=== PATIENT | male | born 1955 | race Caucasian/White ===

== ENCOUNTER 2024-06-11 10:23 | Emergency (ER) | payer MEDICARE, SELFPAY ==
--- NOTE | 2024-06-11 10:26 | ED.MALEGU ---
HPI - Male Genitourinary General Chief complaint: Urogenital-Male Stated complaint: UTI Time Seen by Provider: 06/11/24 10:24 Source: patient Mode of arrival: ambulatory Limitations: no limitations History of Present Illness HPI Narrative: Patient is a 60-year-old male who presents with burning with urination, urgency, frequency for 3 days. Patient was sent to [facility] on Friday but did give large enough sample. Denies any fever, chills, nausea, vomiting, diarrhea, low back pain. Patient states he has not had a UTI in 2 years due to taking daily cranberry pill. Related Data Home Medications ?Medication ?Instructions ?Recorded ?Confirmed ?Last Taken ?Type amlodipine 5 mg tablet mg 06/11/24 Unknown History levothyroxine 75 mcg tablet mcg 06/11/24 Unknown History lisinopril 20 mg tablet mg 06/11/24 Unknown History rosuvastatin 10 mg tablet mg 06/11/24 Unknown History Allergies Allergy/AdvReac Type Severity Reaction Status Date / Time iodine Allergy Mild Other Verified 06/11/24 10:27 SHELLFISH Allergy Mild Other Uncoded 06/11/24 10:27 ANCHOVIES Allergy Other Uncoded 06/11/24 10:27 EGG YOLKS Allergy Other Uncoded 06/11/24 10:27 Review of Systems Review of Systems: All systems reviewed & are unremarkable except as noted in HPI and below Constitutional: Constitutional: Denies chills, Denies fever(s), Denies headache(s), Denies malaise and Denies weakness Eyes: Eyes: Denies change in vision, Denies eye discharge and Denies irritation ENT: Denies otalgia, Denies headache(s), Denies nasal congestion, Denies nasal discharge, Denies sinus pain and Denies sore throat Cardiovascular: Cardiovascular: Denies chest pain, Denies edema, Denies palpitations and Denies dyspnea Respiratory: Respiratory: Denies cough and Denies dyspnea Gastrointestinal: Gastrointestinal: Denies abdominal pain, Denies diarrhea, Denies nausea and Denies vomiting Genitourinary: Genitourinary: Denies hematuria, Reports dysuria, Denies flank pain, Reports urinary frequency and Reports urinary urgency Musculoskeletal: Musculoskeletal: Denies back pain and Denies numbness Integumentary/Breasts: Skin/Breast: Denies pruritus and Denies rash Neurologic: Denies headache(s), Denies numbness and Denies weakness Psychiatric: Psychiatric: Reports no additional psychiatric complaints Endocrine: Endocrine: Denies palpitations PMFSH Comments At time of signature, agree with nursing past medical, surgical, social and family history. There is no relevant family history pertinent to the presenting complaint. Exam Const: General: cooperative, healthy appearing, comfortable, no acute distress and well nourished Nutritional Appearance: well nourished Orientation/consciousness: patient oriented x3 HENMT: Head: normocephalic and atraumatic Ears: external ears normal Face/Nose/Sinus: Normal external nose present, Normal nares present and normal facial exam Face and sinus: normal facial exam Eyes: General: appearance normal, both eyes and all related structures Pupils: Equal, round and reactive pupils present EOM: EOMs intact bilaterally Neck: Neck: normal visual inspection, full ROM and supple Chest: Chest palpation & inspection: normal inspection of the chest Resp: Effort & Inspection: normal respiratory effort and able to speak in complete sentences Cardio: Rate: regular rate Rhythm: regular rhythm GI: Inspection: normal to inspection GI Palp: No abdominal tenderness and Yes Soft to palpation : General: Yes no CVA tenderness Back/Spine/Pelvis: Back: no CVA tenderness Skin: General skin exam: normal color and no rashes or lesions noted Neuro: General: patient oriented x3 and moves all extremities Cranial nerves: Yes Equal, round and reactive pupils present Extrem: General: normal to inspection and full ROM Psych: Appearance: grossly normal and well kempt Course Course Emergency Course: Patient is aware of diagnosis, understands and agrees to treatment plan. Anticipatory guidance given. Patient agrees to follow-up as directed and is aware of reasons to seek care at the emergency department. Portions of this record may have been created with voice recognition software Level of Care: Express Care Visit Vital Signs Vital signs: Vital Signs Temperature 36.9 C 06/11/24 10:41 Pulse Rate 109 H 06/11/24 10:41 Respiratory Rate 18 06/11/24 10:41 Blood Pressure 112/47 L 06/11/24 10:41 Pulse Oximetry 98 06/11/24 10:41 Oxygen Delivery Room Air 06/11/24 10:41 Temperature 36.9 C 06/11/24 10:41 Pulse Rate 109 H 06/11/24 10:41 Respiratory Rate 18 06/11/24 10:41 Blood Pressure 112/47 L 02/14/25 10:41 Pulse Oximetry 98 06/11/24 10:41 Oxygen Delivery Room Air 06/11/24 10:41 Reviewed MDM - Male Genitourinary MDM Narrative Medical decision making narrative: Pt well hydrated appearing, in no respiratory distress, hemodynamically stable. Recommend supportive care. The patient is stable at time of discharge the clinical impression was discussed and the patient was given the opportunity to ask questions, which were addressed as completely as possible given the information available at present. Anticipatory guidance and return to care precautions were discussed and the importance of primary care follow-up was stressed and encouraged. The patient voiced understanding of the plan, indications to return, and the need for follow-up. Exam findings show no acute concerns or changes Patient is appropriate for outpatient treatment and follow-up. Differential Diagnosis Differential diagnosis: Likely urinary tract infection, urethritis, epididymitis and prostatitis Medical Records Attestation: I reviewed the patient's medical records. Lab Data Attestation: I reviewed the patient's lab results. Labs: Lab Results 06/11/24 Range/Units 10:57 POC Urine Color [place] POC Urine Clarity Cloudy POC Urine pH 5.5 POC Ur Specif [place] 1.030 POC Urine Protein 2+ (Negative) POC Ur Glucose (UA) Negative (Negative) POC Urine Ketones Trace (Negative) POC Urine Blood 1+ (Negative) POC Urine Nitrite Positive (Negative) POC Urine Bilirubin 2+ (Negative) POC Urine Urobilinogen 0.2 POC U Leukocyte Esteras Trace (Negative) Discharge Plan Discharge Clinical Impression: Acute UTI Patient Disposition: Home, Self-Care Condition: Stable Instructions: Urinary Tract Infection in Men (ED) Additional Instructions: We will send a urine culture to the lab, based on your symptoms and urine dip we will start treatment today. If culture comes back and bacteria is not susceptible to antibiotic, your prescription may change. Your symptoms should improve within a day of starting antibiotics, but you should finish all the antibiotic pills you get. Otherwise your infection might come back Continue with increased water intake. Take Tylenol or ibuprofen as needed for pain or fever. Follow-up with primary care provider for urine recheck or see ER visit if condition worsens with high fever, nausea, vomiting, severe back pain Patient Language: Romanian Prescriptions: New cephalexin 500 mg capsule 500 mg PO QID 7 Days Qty: 28 0RF No Action lisinopril 20 mg tablet amlodipine 5 mg tablet levothyroxine 75 mcg tablet rosuvastatin 10 mg tablet Follow-up/Referrals: Troy Dempsey [Other] - 3 Days UNKNOWN,DOCTOR [Non-Staff] - Time of Disposition: 10:49
[2024-06-11 10:41] VITALS: BP 112/47; PULSE 109; RESP 18; TEMP 36.9; O2SAT 98
[2024-06-11 11:00] LABS: EDUAAPPEAR Cloudy; EDUABILI 2+ (Negative); EDUABLOOD 1+ (Negative); EDUACOLOR1 Orange; EDUAGLUCOSE Negative (Negative); EDUAKETONE Trace (Negative); EDUALEUKO Trace (Negative); EDUANITRATE Positive (Negative); EDUAPH 5.5; EDUAPROTEIN 2+ (Negative); EDUAUROBILI 0.2
== END 2024-06-11 10:55 | disposition home or self-care (01) ==
PROVIDERS: Emergency Provider Nurse Practitioner Family
DX: N39.0 Urinary tract infection, site not specified (principal); Z79.899 Other long term (current) drug therapy
CPT/HCPCS: 81003; 87077; 87086; 87186; 99203; G0463